=== PATIENT | female | born 1975 | race Caucasian/White ===

== ENCOUNTER 2023-07-09 06:31 | Day surgery (SDC) | payer BC ==
[~2023-07-09] VITALS: Ht 160 cm; Wt 85.2 kg
[~2023-07-09 06:31] MED LIST: CEPH500 PO; CETI5 PO; OMEP10ER PO; ONDA4 PO; OTC ALLERGY MED; RXPROM25 PO; SERT100 PO
[2023-07-09] MEDS ORDERED: ANDRODERM1 EAC3 (06:59)
[2023-07-09] MEDS ORDERED: COENZYME Q10100 MG (07:00)
[2023-07-09] MEDS ORDERED: VITAMIN D5000 UNIT (07:00)
[2023-07-09] MEDS ORDERED: DHEA25 M1 (07:01)
[2023-07-09] MEDS ORDERED: PROG100 (07:01)
[2023-07-09] MEDS ORDERED: [UNRECOGNIZED DRUG - OTHER] (07:01)
[2023-07-09] MEDS ORDERED: Vitamin B-12100 MCG (07:02)
[2023-07-09 09:14] VITALS: BP 124/67
== END 2023-07-09 09:05 | disposition home or self-care (01) ==
LOC: ORSCSDS 06:31
PROVIDERS: Internal Medicine Gastroenterology
PROC: 0DBM8ZX Excision of Descending Colon, Via Natural or Artificial Opening Endoscopic, Diagnostic (ICD-10-PCS; principal; 2023-07-09 08:00)
PROC: 0DBN8ZX Excision of Sigmoid Colon, Via Natural or Artificial Opening Endoscopic, Diagnostic (ICD-10-PCS; principal; 2023-07-09 08:00)
DX: Z12.11 Encounter for screening for malignant neoplasm of colon (principal); D12.4 Benign neoplasm of descending colon; D12.5 Benign neoplasm of sigmoid colon; K57.30 Diverticulosis of large intestine without perforation or abscess without bleeding; Z79.899 Other long term (current) drug therapy
CPT/HCPCS: 88305; J2704; J7120